=== PATIENT | female | born 1945 | race African-American/Black ===

== ENCOUNTER 2017-02-20 15:14 | Emergency (ER) | payer MEDICARE, BC ==
[~2017-02-20] VITALS: Wt 100.0 kg
[~2017-02-20 15:14] MED LIST: CALC0.2511 PO; CIPR500T4 PO; LOSA25TA5 PO; NAPR-260 PO; POLY17PO6 PO; SIMV20TA6 PO; VENL150C94 PO; VERA120C2 PO
--- NOTE | 2017-02-20 15:43 | ERD ---
ER Documentation Chief Complaint Date/Time DATE: 02/20/17 TIME: 15:38 Chief Complaint L HIP PAIN FROM A FALL 4 DAYS AGO. NO DEFORMITY. UNSTEADY GAIT DUE TO PAIN HPI This is a 71-year-old female presenting to emergency department for left hip pain after fall 4 days ago. Patient states she slipped and fell landing on a tiled staircase 4 days ago. Patient has severe pain to left lower back and left hip. Patient rating pain 8/10 and states it does not radiate. Patient states she has been taking Celebrex at home without relief of symptoms. Patient is ambulating normally. ROS All systems reviewed and are negative except as per history of present illness. Medications Home Meds Active Scripts Hydrocodone/Acetaminophen ([place] 5-325 Tablet) 1 Each Tablet, 1 TAB PO Q6H Y for PAIN, #7 TAB Prov:ALEK AVALOS NP 02/20/17 Ibuprofen* (Motrin*) 600 Mg Tab, 600 MG PO Q6, #15 TAB Prov:ALEK AVALOS NP 02/20/17 Naproxen* (Naprosyn*) 500 Mg Tablet, 500 MG PO BID, #20 TAB Prov:ERNESTINA DE JESUS DO 07/19/15 Polyethylene Glycol* (Miralax*) 17 Gm Powd.pack, 17 GM PO DAILY, #30 PACKET Prov:ERNESTINA DE JESUS DO 07/19/15 Ciprofloxacin Hcl* (Ciprofloxacin Hcl*) 500 Mg Tablet, 500 MG PO BID, #14 TAB Prov:ERNESTINA DE JESUS DO 07/19/15 Reported Medications Simvastatin (Simvastatin) 20 Mg Tablet, 20 MG PO DAILY, #90 07/19/15 Losartan Potassium* (Losartan Potassium*) 25 Mg Tablet, 25 MG PO DAILY, #30 07/19/15 Calcitriol* (Calcitriol*) 0.25 Mcg Capsule, 0.5 MG PO, #180 07/19/15 Venlafaxine Hcl* (Venlafaxine Hcl ER*) 150 Mg Cap.er.24h, 150 MG PO BID, #180 07/19/15 Verapamil Hcl* (Verapamil ER*) 120 Mg Cap24h.pel, 120 MG PO DAILY, #90 07/19/15 Allergies Allergies: Coded Allergies: No Known Allergy (Unverified , 07/19/15) PMhx/Soc History of Surgery: Yes (kideny stones x 3, parathyroid sx) Anesthesia Reaction: No Hx Neurological Disorder: No Hx Respiratory Disorders: No Hx Cardiac Disorders: Yes (htn, high cholesterol) Hx Alcohol Use: Yes (4 cocktails a week) Hx Substance Use: No Physical Exam Vitals Vital Signs Date Time Temp Pulse Resp B/P Pulse Ox O2 Delivery O2 Flow Rate FiO2 02/20/17 17:48 77 16 137/85 100 Room Air 02/20/17 15:17 98.0 100 20 137/78 99 Physical Exam Const: No acute distress, alert Head: Atraumatic Eyes: Normal Conjunctiva ENT: Normal External Ears, Nose and Mouth. Neck: Full range of motion..~ No meningismus. Resp: Clear to auscultation bilaterally Cardio: Regular rate and rhythm, no murmurs Abd: Soft, non tender, non distended. Normal bowel sounds Skin: No petechiae or rashes Back: No midline or flank tenderness Ext: No cyanosis, or edema. No surface trauma, ecchymosis. No erythema or warmth. No obvious deformity or crepitus. No obvious asymmetry of the left leg compared to the right. No tenderness to palpation over symphysis pubis, ischial bone, iliac crest or trochanter. Range of motion is unlimited and without pain. Patient has normal flexion to chest, extension, abduction and abduction. Distal motor and neurovascular status are intact. Neur: Awake and alert Psych: Normal Mood and Affect Results 24 hrs Current Medications Medications (Trade) Dose Ordered Sig/Danielle Route PRN Reason Start Time Stop Time Status Last Admin Dose Admin Ibuprofen (Motrin) 600 mg ONCE ONCE PO 02/20/17 16:00 02/20/17 16:01 DC 02/20/17 15:50 Acetaminophen/ Hydrocodone Bitart ([place] (5/325)) 1 tab ONCE ONCE PO 02/20/17 16:00 02/20/17 16:01 DC 02/20/17 15:50 Procedures/[place] [id number] Radiology Main Line: [phone] DIAGNOSTIC IMAGING REPORT Patient: JENNIE ANTHONY : 1945 Age: 71 Sex: F MR #: [id number] DOS: 02/20/17 1543 Ordering MD: ALEK AVALOS NP Location: E Room/Bed: PROCEDURE: XR Cervical Spine. CLINICAL INDICATION: Neck pain. Status post fall. TECHNIQUE: AP, lateral, and open-mouth odontoid views of the cervical spine were performed. The images were reviewed on a PACS workstation. COMPARISON: None. FINDINGS: The cervical spine is aligned without evidence of fractures or subluxations. There is moderate degenerative disk changes seen at all levels of the cervical spine between C3 and C7 with this space narrowing and anterior enthesophytes.. No acute fracture, compression or subluxation.. Odontoid base and lateral masses are aligned. The prevertebral soft tissues are normal. No radiopaque foreign bodies are identified. IMPRESSION: 1. 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 2. No acute fracture.. [place] [id number] Radiology Main Line: [phone] DIAGNOSTIC IMAGING REPORT Patient: JENNIE ANTHONY : 1945 Age: 71 Sex: F MR #: [id number] DOS: 02/20/17 1536 Ordering MD: ALEK AVALOS NP Location: E Room/Bed: PROCEDURE: Left hip series CLINICAL INDICATION: Left hip pain TECHNIQUE: AP and frog-leg lateral views of the left hip are submitted COMPARISON: None FINDINGS: The left hip appears aligned without evidence of fractures, dislocations or osteolytic lesions. Acetabulum appears intact.. IMPRESSION: Normal [place] [address] Radiology Main Line: [phone] DIAGNOSTIC IMAGING REPORT Patient: JENNIE ANTHONY : 1945 Age: 71 Sex: F MR #: [id number] DOS: 02/20/17 1536 Ordering MD: ALEK AVALOS NP Location: E Room/Bed: PROCEDURE: XR Pelvis. CLINICAL INDICATION: Pain. Status post fall. TECHNIQUE: Single AP view of the pelvis. COMPARISON: No prior studies are available for comparison. FINDINGS: The osseous structures, articular spaces, and surrounding soft tissues of the pelvis are unremarkable. No acute fracture or dislocation is seen. No radiopaque foreign body is identified. The osseous mineralization is normal. The sacroiliac joints, as visualized, are grossly unremarkable. IMPRESSION: 1. Unremarkable x-ray pelvis. MDM: This is a 71-year-old female presenting to emergency department with left hip and left lower back pain x 4 days after ground level fall. Patient is able to bear weight while in the ED. Patient states she has pain with full weightbearing. Has full extension, flexion, abduction and abduction during physical exam. Patient given ibuprofen and [place] 5/325mg p.o. while in the ED. X-ray left hip reviewed by radiologist as unremarkable. X-ray pelvis reviewed by radiologist is unremarkable. X-ray cervical spine reviewed by radiologist as moderate degenerate disk changes from C3-C7. No acute fracture. Patient walking without difficulty throughout ED. Discussed with patient that there is still a possibility of a small, or hairline fracture and that she should return to ED if any new or worsening symptoms. Low suspicion for acute dislocation or fracture. Patient is appropriate for outpatient management and instructed to follow-up with primary care provider in the next 2-3 days for reassessment. Patient given prescriptions for ibuprofen and [place]. Return to ED for any high fever, chest pain, difficulty breathing, shortness breath, wheezing, vomiting, diarrhea , abdominal pain or any new or worsening symptoms. Patient verbalizes understanding. All questions answered at discharge. Departure Diagnosis: Primary Impression: Hip injury Encounter type: initial encounter Laterality: left Qualified Code: S79.912A - Hip injury, left, initial encounter Condition: Stable ALEK AVALOS NP Feb 20, 2017 15:43
[2017-02-20] MEDS ORDERED: IBUPROFEN 600 MG TAB PO ONE (16:00)
[2017-02-20] MEDS ORDERED: HYDROCODONE/APAP (5/325) TAB PO ONE (16:00)
--- NOTE | 2017-02-20 16:29 | RADRPT ---
PROCEDURE: XR Pelvis. CLINICAL INDICATION: Pain. Status post fall. TECHNIQUE: Single AP view of the pelvis. COMPARISON: No prior studies are available for comparison. FINDINGS: The osseous structures, articular spaces, and surrounding soft tissues of the pelvis are unremarkabl e. No acute fracture or dislocation is seen. No radiopaque foreign body is identified. The osseous mineralization is normal. The sacroiliac joints, as visualized, are grossly unremarkable. IMPRESSION: 1. Unremarkable x-ray pelvis. RPTAT: QQ .Willem Caballero MD, MD Date Time Electronically viewed and signed by .Willem Caballero MD, on 02/20/2017 16:28 .L/
--- NOTE | 2017-02-20 16:33 | RADRPT ---
PROCEDURE: Left hip series CLINICAL INDICATION: Left hip pain TECHNIQUE: AP and frog-leg lateral views of the left hip are submitted COMPARISON: None FINDINGS: The left hip appears aligned without evidence of fractures, dislocations or osteolytic lesions. Avni tabulum appears intact.. IMPRESSION: Normal RPTAT: QQ .Willem Caballero MD, Date Time Electronically viewed and signed by .Willem Caballero MD, on 02/20/2017 16:33 .L/
--- NOTE | 2017-02-20 17:09 | RADRPT ---
PROCEDURE: XR Cervical Spine. CLINICAL INDICATION: Neck pain. Status post fall. TECHNIQUE: AP, lateral, and open-mouth odontoid views of the cervical spine were performed. The im ages were reviewed on a PACS workstation. COMPARISON: None. FINDINGS: The cervical spine is aligned without evidence of fractures or subluxations. There is moderate dege nerative disk changes seen at all levels of the cervical spine between C3 and C7 with this space eliel rowing and anterior enthesophytes.. No acute fracture, compression or subluxation.. Odontoid base a nd lateral masses are aligned. The prevertebral soft tissues are normal. No radiopaque foreign bodi es are identified. IMPRESSION: 1. 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 2. No acute fracture.. RPTAT: QQ .Willem Caballero MD, Date Time Electronically viewed and signed by .Willem Caballero MD, on 02/20/2017 17:09 .L/
[2017-02-20] MEDS ORDERED: IBUP-1542 PO (17:22)
[2017-02-20] MEDS ORDERED: HYDR-906 PO (17:22)
[2017-02-20 17:48] VITALS: BP 137/85; PULSE 77; RESP 16
== END 2017-02-20 17:49 | disposition home or self-care (01) ==
LOC: FTE 15:14
DX: S79.912A Unspecified injury of left hip, initial encounter (principal); I10 Essential (primary) hypertension; W01.0XXA Fall on same level from slipping, tripping and stumbling without subsequent striking against object, initial encounter; Y92.9 Unspecified place or not applicable
CPT/HCPCS: 72040; 72170; 73510